=== PATIENT | female | born 1940 | race Caucasian/White ===

== ENCOUNTER 2016-09-26 12:16 | Inpatient (IN) | payer OTHER, MEDICAID ==
[~2016-09-26] VITALS: Ht 152.4 cm; Wt 71.8 kg
[~2016-09-26 12:16] MED LIST: ANT12.5 PO; ASPIR 8181 MG PO; DIOVAN160 MG PO; ECO81 PO; FER300 PO; FERROUS SULFAT325 M2 PO; FLONASE0.05 MG/Ac NS; FLOVENT DI100 MCG/A1; FOL1 PO; FOLIC ACID1 MG PO; HUMI SC; HYDROXYZINE50 M1 PO; LAC PO; LANTUS100 U/ML SC; LEVOTHYROXINE0.1 M2 PO; LIPI10 PO; LOVAZA1 G1 PO; LYRICA150 M1 PO; MAC100 PO; MAC50; MELOXICAM15 M1 PO; METFORMIN HCL1000 MG PO; METHOTREXATE2.5 M2 PO; NORCO1 TA2 PO; OMEPRAZOLE40 M1 PO; PREDNISONE1 MG PO; PULMICORT180 MCG/Ac PO; SYMBICORT1 AE3 INH; THERAGRAN-M1 TA4 PO; TRAMADOL HCL50 MG PO; TRAZODONE100 MG PO; VITAMIN D31000 I2 PO; VITAMIN D32000 I2
[2016-09-26 14:19] LABS: BASOPHIL % 0.3 % (0-2)
[2016-09-26 14:21] LABS: CALCIUM 8.6 mg/dL (8.5-10.1); CHLORIDE SERUM 100 mmol/L (98-107); CREATININE SERUM 1.3 mg/dL (0.6-1.0); GLUCOSE SERUM 142 mg/dL (74-106); POTASSIUM SERUM 3.6 mmol/L (3.5-5.1); SODIUM SERUM 138 mmol/L (136-145)
[2016-09-26 14:30] LABS: ALKALINE PHOSPHATASE 63 U/L (46-116); ALT/SGPT 44 U/L (14-59); AST/SGOT 23 U/L (15-37); BILIRUBIN TOTAL 2.3 mg/dL (0.20-1.00)
[2016-09-26 14:31] LABS: ALBUMIN 3.3 g/dL (3.4-5.0); TOTAL PROTEIN, SERUM 5.9 g/dL (6.4-8.2)
[2016-09-26 14:34] LABS: CK-MB < 0.5 ng/mL (0-3.6); CREATINE KINASE 84 U/L (26-192); PLATELET COUNT 101 x10^3mcL (130-400); RED CELL DISTRIBUTION WIDTH 18.5 % (11.5-14.5)
[2016-09-26] MEDS ORDERED: ATORVASTATIN CA20 M1 PO (14:54)
[2016-09-26] MEDS ORDERED: TRAZODONE50 M1 PO (14:58)
[2016-09-26 15:17] VITALS: BP 113/50
[2016-09-26] MEDS ORDERED: HCTZ/TRIAMTEREN1 CA1 PO (15:24)
[2016-09-26] MEDS ORDERED: [UNRECOGNIZED DRUG - OTHER] PO (15:26)
[2016-09-26] MEDS ORDERED: PREDNISONE1 MG PO (15:26)
[2016-09-26] MEDS ORDERED: NUCYNTA50 MG PO (15:27)
[2016-09-26] MEDS ORDERED: SCOP TOP (15:27)
[2016-09-26] MEDS ORDERED: HYDROXYZINE50 M1 PO (15:28)
[2016-09-26 15:42] LABS: T3 TOTAL 0.85 ng/mL
[2016-09-26 15:56] LABS: CHOLESTEROL/HDL RATIO 1.3; FREE T4 1.85 ng/dL (0.76-1.46); FREE THYROXINE INDEX 4.5 ug/dL (1.4-4.5); T4(THYROXINE) 10.9 ug/dL (4.7-13.3)
[2016-09-26 16:49] VITALS: BP 85/40
[2016-09-26 17:17] VITALS: Ht 152.4 cm; Wt 71.8 kg
[2016-09-26 19:00] VITALS: BP 98/45
[2016-09-26 20:00] VITALS: BP 104/49
[2016-09-26 20:31] LABS: microscopic required? YES; urine erythrocyte TRACE (NEGATIVE)
[2016-09-26 21:24] LABS: BILIRUBIN DIRECT 0.49 mg/dL (0.0-0.2); BILIRUBIN TOTAL 2.3 mg/dL (0.20-1.00)
[2016-09-26 21:50] VITALS: BP 100/50
[2016-09-27 05:42] LABS: BASOPHIL % 0.3 % (0-2)
[2016-09-27 06:02] LABS: CALCIUM 7.8 mg/dL (8.5-10.1); CARBON DIOXIDE 26.2 mmol/L (21-32); CHLORIDE SERUM 110 mmol/L (98-107); CREATININE SERUM 0.9 mg/dL (0.6-1.0); GLUCOSE SERUM 105 mg/dL (74-106); MAGNESIUM 1.7 mg/dL (1.8-2.4); PHOSPHOROUS 2.8 mg/dL (2.5-4.9); POTASSIUM SERUM 3.8 mmol/L (3.5-5.1); SODIUM SERUM 143 mmol/L (136-145)
[2016-09-27 06:17] VITALS: BP 109/51
[2016-09-27 06:51] LABS: PLATELET COUNT 84 x10^3mcL (130-400); RED CELL DISTRIBUTION WIDTH 17.9 % (11.5-14.5)
[2016-09-27 08:47] VITALS: BP 131/66
[2016-09-27 18:02] VITALS: BP 108/52
[2016-09-27 21:35] VITALS: BP 123/59
[2016-09-28 06:20] LABS: BASOPHIL % 0.6 % (0-2)
[2016-09-28 06:21] VITALS: BP 115/61
[2016-09-28 06:40] LABS: PLATELET COUNT 102 x10^3mcL (130-400); RED CELL DISTRIBUTION WIDTH 18.5 % (11.5-14.5)
[2016-09-28 06:41] LABS: CHLORIDE SERUM 110 mmol/L (98-107); CREATININE SERUM 0.8 mg/dL (0.6-1.0); GLUCOSE SERUM 100 mg/dL (74-106); PHOSPHOROUS 2.9 mg/dL (2.5-4.9); POTASSIUM SERUM 3.6 mmol/L (3.5-5.1); SODIUM SERUM 143 mmol/L (136-145)
[2016-09-28 08:57] VITALS: BP 120/56
[2016-09-28 13:58] VITALS: BP 138/71
[2016-09-28 18:17] VITALS: BP 128/89
[2016-09-28 21:35] VITALS: BP 125/59
[2016-09-29 05:33] VITALS: BP 147/72
[2016-09-29 06:11] LABS: BASOPHIL % 0.5 % (0-2)
[2016-09-29 06:40] LABS: PLATELET COUNT 108 x10^3mcL (130-400); RED CELL DISTRIBUTION WIDTH 18.8 % (11.5-14.5)
[2016-09-29 06:52] LABS: CALCIUM 8.1 mg/dL (8.5-10.1); CARBON DIOXIDE 26.3 mmol/L (21-32); CHLORIDE SERUM 110 mmol/L (98-107); CREATININE SERUM 0.7 mg/dL (0.6-1.0); GLUCOSE SERUM 76 mg/dL (74-106); MAGNESIUM 1.8 mg/dL (1.8-2.4); PHOSPHOROUS 3.2 mg/dL (2.5-4.9); POTASSIUM SERUM 3.6 mmol/L (3.5-5.1); SODIUM SERUM 144 mmol/L (136-145)
[2016-09-29 07:40] VITALS: BP 147/72
[2016-09-29] MEDS ORDERED: LEVAQUIN750 MG PO (10:39)
[2016-09-29] MEDS ORDERED: LAC PO (10:40)
[2016-09-29] MEDS ORDERED: CLEOCIN HCL300 MG PO (10:40)
[2016-09-29 14:00] VITALS: BP 129/79
[2016-09-29] MEDS ORDERED: FLONS (15:06)
[2016-09-29] MEDS ORDERED: VITAMIN-D1000 IU (15:07)
== END 2016-09-29 16:37 | disposition home or self-care (01) | DRG 871 ==
LOC: ED 12:16 → DU 14:42
PROVIDERS: Emergency Medicine; Family Medicine; ADMIT Family Medicine
DX: A41.9 Sepsis, unspecified organism (principal); J69.0 Pneumonitis due to inhalation of food and vomit; N17.0 Acute kidney failure with tubular necrosis; J96.01 Acute respiratory failure with hypoxia; E44.0 Moderate protein-calorie malnutrition; D68.69 Other thrombophilia; E11.65 Type 2 diabetes mellitus with hyperglycemia; R65.20 Severe sepsis without septic shock; E86.0 Dehydration; E83.42 Hypomagnesemia; I10 Essential (primary) hypertension; K21.9 Gastro-esophageal reflux disease without esophagitis; E03.9 Hypothyroidism, unspecified; M06.9 Rheumatoid arthritis, unspecified; E78.5 Hyperlipidemia, unspecified; D69.6 Thrombocytopenia, unspecified; D64.9 Anemia, unspecified; E87.8 Other disorders of electrolyte and fluid balance, not elsewhere classified; Z79.82 Long term (current) use of aspirin; Z68.31 Body mass index [BMI] 31.0-31.9, adult; M71.21 Synovial cyst of popliteal space [Baker], right knee
CPT/HCPCS: 36600; 82962; 83880; 84439; 97110-GP; 97116-GP; 97530-GP; J1815; J1956; J3475; J3490; J7030; J7512; J7613; J7620; J7626; Q0092

== ENCOUNTER → 2016-09-30 | Outpatient (CLI) | payer OTHER, MEDICAID ==
[~2016-09-30] MED LIST changes: +ATORVASTATIN CA20 M1 PO; +CLEOCIN HCL300 MG PO; +FLONS; +HCTZ/TRIAMTEREN1 CA1 PO; +LEVAQUIN750 MG PO; +NUCYNTA50 MG PO; +SCOP TOP; +TRAZODONE50 M1 PO; +VITAMIN-D1000 IU; +[UNRECOGNIZED DRUG - OTHER] PO
== END | disposition home or self-care (01) ==
LOC: MA 10:19
PROC: BH02ZZZ Plain Radiography of Bilateral Breasts (ICD-10-PCS; principal; 2016-09-30)
DX: Z12.39 Encounter for other screening for malignant neoplasm of breast (principal)
CPT/HCPCS: G0202

== ENCOUNTER 2016-11-02 10:27 | Inpatient (IN) | payer OTHER, MEDICAID ==
[~2016-11-02] VITALS: Ht 152.4 cm; Wt 65.4 kg
--- NOTE | 2016-11-02 11:04 | NUR ---
PT IS AAOX4, RESP EVEN AND UNLABORED, RA. NO SIGN OF DISTRESS. PT TO WAIT IN LOBBY DUE TO NO BED AVAILIBLE AT THIS TIME
--- NOTE | 2016-11-02 11:55 | NUR ---
DR. RATLIFF PERFORMED MSE, PT IN ED WITH C/O COUGH SINCE TUESDAY WITH EXERTIONAL SOB, PT IS AAO4, NO ACUTE DISTRESS, BREATHING IS EVEN AND UNLABORED, DENIES CHEST PAIN, C/O BILATERAL LEG PAIN
[2016-11-02 12:20] LABS: BASOPHIL % 0.7 % (0-2)
[2016-11-02 12:22] LABS: PLATELET COUNT 101 x10^3mcL (130-400); RED CELL DISTRIBUTION WIDTH 17.5 % (11.5-14.5)
[2016-11-02 12:31] LABS: CALCIUM 8.8 mg/dL (8.5-10.1); CARBON DIOXIDE 27.5 mmol/L (21-32); CHLORIDE SERUM 104 mmol/L (98-107); CREATININE SERUM 1.3 mg/dL (0.6-1.0); GLUCOSE SERUM 91 mg/dL (74-106); POTASSIUM SERUM 4.2 mmol/L (3.5-5.1); SODIUM SERUM 139 mmol/L (136-145)
[2016-11-02 12:35] LABS: ALKALINE PHOSPHATASE 99 U/L (46-116); ALT/SGPT 34 U/L (14-59); AST/SGOT 21 U/L (15-37); BILIRUBIN TOTAL 1.1 mg/dL (0.20-1.00); TOTAL PROTEIN, SERUM 6.8 g/dL (6.4-8.2)
[2016-11-02 12:36] LABS: ALBUMIN 3.2 g/dL (3.4-5.0)
[2016-11-02 13:03] LABS: microscopic required? YES; urine erythrocyte TRACE (NEGATIVE)
[2016-11-02 13:38] VITALS: BP 102/57
--- NOTE | 2016-11-02 13:51 | NUR ---
CALLED [facility] FOR REPORT, WILL CALL BACK
--- NOTE | 2016-11-02 14:09 | NUR ---
REPORT TO [facility] TAM, PER [facility] BED BEING CLEANED CAN MOVE PT IN 10-15 MINUTES
[2016-11-02 14:25] LABS: T3 TOTAL 0.89 ng/mL
[2016-11-02 14:27] LABS: FREE T4 1.24 ng/dL (0.76-1.46); FREE THYROXINE INDEX 3.9 ug/dL (1.4-4.5); T4(THYROXINE) 10.5 ug/dL (4.7-13.3)
[2016-11-02 14:31] LABS: CHOLESTEROL/HDL RATIO 1.4
[2016-11-02 14:32] LABS: PHOSPHOROUS 2.8 mg/dL (2.5-4.9)
[2016-11-02 15:16] VITALS: BP 80/36
--- NOTE | 2016-11-02 15:45 | NUR ---
ARRIVED FROM ED AT 1435. AAO TIMES 4. TELE # 10 ST 104, BP 80/36 (DR CORDERO NOTIFIED) LUNGS CTA. O2 SAT ON RA 94%. BS'S ACTIVE TIMES 4. PERIPHERAL PULSES PALPABLE. NO EDEMA. C/O PERIPHERAL LEG PAIN, STATES SHE HAS NEUROPATHY. BLOOD SUGAR WAS 146 AT 1500 (SHE SAYS SHE TOOK HER MEDICATIONS BUT DIDNT EAT AND SHE HAS HISTORY OF DM, AND HER DTR GIVES HER HER PILLS AND SHE DOESNT KNOW WHICH ONES SHE TOOK). BOLUS WAS STARTED ORDERED, SEE MAR. WAITING FOR BOLUS TO FINISH FOR VS'S TO BE DONE.
[2016-11-02 16:45] VITALS: BP 90/42
--- NOTE | 2016-11-02 16:58 | NUR ---
BOLUS STARTED AT 1515 AT 1000 ML PER HOUR. PT KEPT BENDING HER ARM AND THE IV WAS ALARMING AT 1615 I APPLIED AN ARM BOARD TO KEEP HER ARM STRAIGHT. THE BOLUS ENDED AT 1545. VS'S TEMP 97.7, HR 101, RESP 24, BP 90/42 AFTER THE BOLUS COMPLETED.
[2016-11-02 17:15] VITALS: BP 89/49
--- NOTE | 2016-11-02 17:28 | NUR ---
DR PATTERSON WAS NOTIFIED OF BP OF 89/49 AT 1715 AND AT 1645 90/42 POST BOLUS INFUSION OF 1000 ML NS. NEW ORDER TO BOLUS A 2ND LITER OF NS.
--- NOTE | 2016-11-02 17:42 | NUR ---
2ND BOLUS STARTED AT 1732, WITH AN ARM BOARD SHE STILL KEEPS BENDING HER ARM, REMINDERS ARE GIVEN TO HER BUT SHE FORGETS.
--- NOTE | 2016-11-02 18:15 | NUR ---
AAO TIMES 4. TELE # [address] NO C/O PAIN. BOLUS OF 1000 ML NS INFUSING ORDERED. ARM BOARD TO TOPHER RE APPLIED AND SHE WAS REMINDED TO KEEP HER ARM STRAIGHT, SHE IS FORGETFUL REGARDING THIS. SHE ATE 90% OF HER DINNER, TOLERATED WELL.
--- NOTE | 2016-11-02 20:00 | NUR ---
AWAKE AND VERBALLY RESPONSIVE. ABLE TO MAKE NEEDS KNOWN. SKIN WARM AND DRY TOT OUCH. RESPIRATION EVEN AND UNLABORED. IVF NS BOLUS ONGOING ORDERED. DENIES ANY PAIN/DISCOMFORT. WILL CONTINUE TO MONITOR.
[2016-11-02 21:30] VITALS: BP 102/53; BP 148/50
--- NOTE | 2016-11-02 21:30 | NUR ---
IVF NS BOLUS 2ND LITER COMPLETED, IVF MAINTAINED AT 50CC/HR ORDERED VIA PERIPHERAL LINE AT THE LAC . IV SITE CLEAR AND INTACT. WILL RECHECK VITAL SIGNS AFTER IHR COMPLETION OF 2ND LITER OF NS.
[2016-11-02 22:30] VITALS: BP 106/53; BP 106/54
--- NOTE | 2016-11-02 22:30 | NUR ---
VITAL SIGNS TAKEN T=97.6, HR=86/MIN, R=20, YR=058/53, NO NEED TO REPEAT LACTIC ACID PER DR OLVERA, LACTIC ACID-1.7. WILL CONTINUE TO MONITOR.
--- NOTE | 2016-11-03 00:23 | NUR ---
EYES CLSOED, NO FACIAL GRIAMCING NOTED. RESPIRATION EVEN AND UNLABORED. NO S/S OF PAIN/DISCOMFORT AT THIS TIME.
[2016-11-03 05:03] LABS: BASOPHIL % 0.4 % (0-2)
[2016-11-03 05:05] LABS: PLATELET COUNT 80 x10^3mcL (130-400)
[2016-11-03 05:10] LABS: CARBON DIOXIDE 23.4 mmol/L (21-32); CHLORIDE SERUM 109 mmol/L (98-107); CREATININE SERUM 1.1 mg/dL (0.6-1.0); GLUCOSE SERUM 134 mg/dL (74-106); MAGNESIUM 1.7 mg/dL (1.8-2.4); PHOSPHOROUS 3.2 mg/dL (2.5-4.9); POTASSIUM SERUM 4.2 mmol/L (3.5-5.1); SODIUM SERUM 142 mmol/L (136-145)
[2016-11-03 05:47] VITALS: BP 101/68
--- NOTE | 2016-11-03 06:49 | NUR ---
AMBULATED TO BATHROOM FOR PERSONAL NEEDS. KEPT CLEAN AND DRY. TOLERATED FLUIDS ORALLY. NO S/S OF ASPIRATION.
--- NOTE | 2016-11-03 08:37 | NUR ---
PT WAS ENDORSE TO ME, A/O , IV LAC AT 100 NS, NO REDNESS OR SWELLING NOTED AT IV SITE. PT DENIES ANY CHEST PAIN OR ACUTE DISCOMFORT. CALL LIGHT IN REACH, WILL CONTINUE PLAN OF CARE.
--- NOTE | 2016-11-03 08:40 | NUR ---
DR PEREZ AND TEAM MADE ROUNDS, WILL CONTINUE PLAN OF CARE.
--- NOTE | 2016-11-03 09:00 | NUR ---
GAVE PT AM MEDS, TOLERATED WELL. EDUCATED PT ON SCD AND INCENTIVE SPIROMETER. CALL LIGHT IN REACH, WILL CONTINUE PLAN OF CARE.
[2016-11-03 09:02] VITALS: BP 132/60
[2016-11-03 12:27] VITALS: BP 114/60
--- NOTE | 2016-11-03 14:02 | NUR ---
MEDICATED PT WITH ROBITUSSIN DUE TO COUGH.
--- NOTE | 2016-11-03 14:30 | NUR ---
NOTIFIED DR CORDERO REGRADING PT CONSISTENT COUGH.
--- NOTE | 2016-11-03 15:47 | NUR ---
MEDICATED PT WITH 1 ANDREAS/CEPACOL, WILL CONTINUE PLAN OF CARE.
[2016-11-03 16:06] VITALS: BP 115/62
--- NOTE | 2016-11-03 17:43 | NUR ---
GAVE PT PM MED, TOLERATED WELL. IS SITTING UP IN BED HAVING DINNER WITH AT HER SIDE. CALL LIGHT IN REACH, WILL CONINUE PLAN OF CARE.
--- NOTE | 2016-11-03 18:38 | NUR ---
PT C/O COUGH, MEDICATED WITH CEPACOL.
--- NOTE | 2016-11-03 18:56 | NUR ---
NURSING CO-SIGN THE DOCUMENTATION ENTERED BY THE RN JUAN ALBERTO HAS BEEN REVIEWED. REVIEWED/CO-SIGNED BY: Nancy Spivey DOCUMENTATION DONE BY:JEY GONZALES
--- NOTE | 2016-11-03 19:06 | NUR ---
PT IS WATCHING TV WITH AT BEDSIDE, STATED COUGH IS ALOT BETTER. CALL LIGHT IN REACH, BED AT LOW POSITION, WILL ENDORSE PT TO INCOMING NURSE.
--- NOTE | 2016-11-03 20:02 | NUR ---
PT CURRENTLY RESTING IN BED, NO ACUTE DISTRESS. A/O X4. TELE #10 SHOWING SINUS TACHYCARDIA, DENIES CHEST PAIN. PULSES PALPABLE IN ALL EXTREMITIES, NO EDEMA NOTED. LUNG SOUNDS CTA BILATERALLY. NON-PRODUCTIVE COUGH NOTED. BOWEL SOUNDS ACTIVE, LAST BM 11/03/16. VOIDING WELL. MILD GENERALIZED WEAKNESS NOTED, AMBULATORY. SKIN INTACT. DENIES PAIN AT THIS TIME. IV PATENT AND INTACT. BED IN LOWEST POSITION, SIDE RAILS UP X2, SCDS IN PLACE, CALL LIGHT WITHIN REACH. WILL CONTINUE TO MONITOR.
[2016-11-03 22:01] VITALS: BP 119/64
[2016-11-04 05:58] VITALS: BP 122/60
[2016-11-04 06:20] LABS: CALCIUM 8.6 mg/dL (8.5-10.1); CARBON DIOXIDE 26.2 mmol/L (21-32); CHLORIDE SERUM 112 mmol/L (98-107); CREATININE SERUM 0.7 mg/dL (0.6-1.0); GLUCOSE SERUM 116 mg/dL (74-106); MAGNESIUM 1.8 mg/dL (1.8-2.4); PHOSPHOROUS 2.9 mg/dL (2.5-4.9); POTASSIUM SERUM 3.9 mmol/L (3.5-5.1); SODIUM SERUM 146 mmol/L (136-145)
[2016-11-04 07:19] LABS: BASOPHIL % 1.7 % (0-2)
[2016-11-04 07:24] LABS: PLATELET COUNT 103 x10^3mcL (130-400); RED CELL DISTRIBUTION WIDTH 17.2 % (11.5-14.5)
[2016-11-04 10:05] VITALS: BP 113/52
[2016-11-04 15:10] VITALS: BP 131/71
[2016-11-04 17:20] VITALS: BP 132/71
--- NOTE | 2016-11-04 19:17 | NUR ---
PT RESTING COMFORTABLY AT THIS TIME AFTER DINNER,IN NO DISTRESS,DENIES PAIN. BEDSIDE ENDORSEMENT DONE W/ NOC NURSE ABIEL.CALL LIGHT PROVIDED AT HAND AND REINFORCE ITS USE.
--- NOTE | 2016-11-04 20:11 | NUR ---
[facility] PT AOX4. TELE #10, SR WITH BB, HR 114. DENIES CP/ PRESSURE. PULSES GOOD, NO EDEMA NOTED. LUNG SOUNDS CLEAR, ON RA. DENIES SOB/ DIFFICULTY BREATHING. BOWEL SOUNDS ACTIVE. PT AMBULATORY. SKIN INTACT. IV IN LAC, INTACT AND PATENT. BED IN LOWEST POSITION. CALL LIGHT WITHIN REACH. WILL CONTINUE TO MONITOR.
[2016-11-04 20:53] VITALS: BP 101/57
--- NOTE | 2016-11-04 23:41 | NUR ---
PATIENT CANNOT TOLERATE BIPAP, HAD PATIENT TIRED BIPAP ON AT 2145.
--- NOTE | 2016-11-05 02:35 | NUR ---
PT RESTING IN BED. RR EVEN AND UNLABORED. NO ACUTE DISTRESS NOTED. BED IN LOWEST POSITION. CALL LIGHT WITHIN REACH. WILL CONTINUE TO MONITOR.
[2016-11-05 05:19] VITALS: BP 123/61
[2016-11-05 05:48] LABS: BASOPHIL % 0.1 % (0-2)
[2016-11-05 06:17] LABS: CALCIUM 8.6 mg/dL (8.5-10.1); CHLORIDE SERUM 106 mmol/L (98-107); CREATININE SERUM 0.8 mg/dL (0.6-1.0); GLUCOSE SERUM 241 mg/dL (74-106); POTASSIUM SERUM 3.9 mmol/L (3.5-5.1); SODIUM SERUM 140 mmol/L (136-145)
[2016-11-05 06:43] LABS: PLATELET COUNT 109 x10^3mcL (130-400); RED CELL DISTRIBUTION WIDTH 17.4 % (11.5-14.5)
[2016-11-05 09:09] VITALS: BP 114/68
--- NOTE | 2016-11-05 09:32 | NUR ---
PT ON BED, AWAKE, ALERT, AND ORIENTED. HAS NO COMPLAINT OF PAIN, SOB, OR DIZZINESS. PT IS BERMUDIAN SPEAKING MOSTLY. CLEAR [place] LUNG FIELD, SYMMETRICAL CHEST EXPANSION AND UNLABORED. ACTIVE BOWEL SOUNDS NOTED. NON DISTENDED ABDOMEN. NO DISTRESS NOTED. DR. CORDERO WAS MADE AWARE OF PT'S DAUGHTER REQUESTING TO TALK TO HIM OVER THE PHONE. FAMILY AT BEDSIDE. SIDE RAILS UP, CALL LIGHT WITHIN REACH, WILL CONTINUE TO MONITOR
[2016-11-05] MEDS ORDERED: LEVOTHYROXINE0.05 M2 PO (12:06)
[2016-11-05] MEDS ORDERED: PREDNISONE10 MG PO (12:08)
[2016-11-05 13:42] VITALS: BP 132/67
--- NOTE | 2016-11-05 13:55 | NUR ---
MATERIAL WAS MADE AWARE OF PT IN NEED OF HEEL RAISER BOOT
[2016-11-05] MEDS ORDERED: XOPENEX HF0.045 MG/1 INH (14:20)
[2016-11-05 14:40] VITALS: BP 132/67
[2016-11-05 14:45] VITALS: BP 132/67
[2016-11-05] MEDS ORDERED: PULMICORT0.5 MG/2 M NEB (21:36)
== END 2016-11-05 15:57 | disposition home or self-care (01) | DRG 205 ==
LOC: ED 10:27 → DU 12:55
PROVIDERS: Emergency Medicine; Family Medicine; ADMIT Family Medicine
DX: M94.0 Chondrocostal junction syndrome [Tietze] (principal); N17.0 Acute kidney failure with tubular necrosis; D68.69 Other thrombophilia; J70.3 Chronic drug-induced interstitial lung disorders; E11.65 Type 2 diabetes mellitus with hyperglycemia; K21.9 Gastro-esophageal reflux disease without esophagitis; E83.42 Hypomagnesemia; D69.6 Thrombocytopenia, unspecified; I10 Essential (primary) hypertension; M06.9 Rheumatoid arthritis, unspecified; E78.5 Hyperlipidemia, unspecified; D53.9 Nutritional anemia, unspecified; Z79.82 Long term (current) use of aspirin; Z79.4 Long term (current) use of insulin; Z79.84 Long term (current) use of oral hypoglycemic drugs; E05.80 Other thyrotoxicosis without thyrotoxic crisis or storm; T45.1X5A Adverse effect of antineoplastic and immunosuppressive drugs, initial encounter; Y92.018 Other place in single-family (private) house as the place of occurrence of the external cause
CPT/HCPCS: 36600; 82962; 83880; 84439; 94150; J1885; J1956; J2920; J7030; J7613; J7620; J7626; J7644; Q0092

== ENCOUNTER → 2016-12-02 | Outpatient (CLI) | payer OTHER, MEDICAID ==
[~2016-12-02] MED LIST changes: +LEVOTHYROXINE0.05 M2 PO; +PREDNISONE10 MG PO; +PULMICORT0.5 MG/2 M NEB; +XOPENEX HF0.045 MG/1 INH
== END | disposition home or self-care (01) ==
LOC: US 11:30
PROC: BH41ZZZ Ultrasonography of Left Breast (ICD-10-PCS; principal; 2016-12-02)
DX: N63 Unspecified lump in breast (principal)
CPT/HCPCS: 76641

== ENCOUNTER → 2017-05-31 | Outpatient (CLI) | payer OTHER, MEDICAID | END | disposition home or self-care (01) | LOC: MA 12:38 | PROC: BH02ZZZ Plain Radiography of Bilateral Breasts (ICD-10-PCS; principal; 2017-05-31) | DX: R92.8 Other abnormal and inconclusive findings on diagnostic imaging of breast (principal) | CPT/HCPCS: G0204 ==

== ENCOUNTER → 2017-10-25 | Outpatient (CLI) | payer OTHER, MEDICAID | END | disposition home or self-care (01) | LOC: US 13:46 | PROC: B345ZZZ Ultrasonography of Bilateral Common Carotid Arteries (ICD-10-PCS; principal; 2017-10-25) | PROC: B348ZZZ Ultrasonography of Bilateral Internal Carotid Arteries (ICD-10-PCS; 2017-10-25) | DX: R09.89 Other specified symptoms and signs involving the circulatory and respiratory systems (principal) ==

== ENCOUNTER 2018-08-27 15:00 | Inpatient (IN) | payer OTHER, MEDICAID ==
[~2018-08-27] VITALS: Ht 127 cm; Wt 70.0 kg
[~2018-08-27 15:00] MED LIST changes: -VITAMIN-D1000 IU; +VITAMIN-D1000 IU PO
[2018-08-27 15:09] VITALS: Ht 127 cm; Wt 70.0 kg
[2018-08-27 16:03] LABS: BASOPHIL % 0.3 % (0-2); PLATELET COUNT 191 x10^3mcL (130-400); RED CELL DISTRIBUTION WIDTH 13.8 % (11.5-14.5)
[2018-08-27 16:09] LABS: CALCIUM 8.8 mg/dL (8.5-10.1); CARBON DIOXIDE 27.1 mmol/L (21-32); CHLORIDE SERUM 98 mmol/L (98-107); CREATININE SERUM 0.9 mg/dL (0.6-1.0); GLUCOSE SERUM 252 mg/dL (74-106); POTASSIUM SERUM 3.4 mmol/L (3.5-5.1); SODIUM SERUM 134 mmol/L (136-145)
[2018-08-27 16:14] LABS: ALKALINE PHOSPHATASE 141 U/L (46-116); ALT/SGPT 36 U/L (14-59); AST/SGOT 37 U/L (15-37); BILIRUBIN TOTAL 0.82 mg/dL (0.20-1.00); TOTAL PROTEIN, SERUM 6.5 g/dL (6.4-8.2)
[2018-08-27 16:21] LABS: ALBUMIN 2.4 g/dL (3.4-5.0)
[2018-08-27 17:08] LABS: UA SPECIFIC GRAVITY <=1.005 (1.005-1.035); microscopic required? YES; urine erythrocyte NEGATIVE (NEGATIVE)
[2018-08-27] MEDS ORDERED: ARAVA20 MG PO (17:09)
[2018-08-27] MEDS ORDERED: LYRICA150 M1 (17:10)
[2018-08-27] MEDS ORDERED: AMITRIPTYLINE H50 MG PO (17:10)
[2018-08-27] MEDS ORDERED: NOR5 PO (17:10)
[2018-08-27] MEDS ORDERED: MIRAPEX0.25 MG PO (17:10)
[2018-08-27] MEDS ORDERED: SUCRALFATE1 GM PO (17:11)
[2018-08-27] MEDS ORDERED: HYDROXYZINE10 M1 PO (17:11)
[2018-08-27] MEDS ORDERED: BACLOFEN10 MG PO (17:11)
[2018-08-27] MEDS ORDERED: VOLTAREN-XR100 MG PO (17:12)
[2018-08-27 17:18] VITALS: BP 154/72
[2018-08-27 18:15] VITALS: BP 134/70
[2018-08-27 21:34] VITALS: BP 121/63
[2018-08-28] VITALS (7 sets, daily range): BP systolic 118–137; BP diastolic 62–75
[2018-08-28 07:32] LABS: CALCIUM 8.1 mg/dL (8.5-10.1); CARBON DIOXIDE 26.7 mmol/L (21-32); CHLORIDE SERUM 109 mmol/L (98-107); CREATININE SERUM 0.7 mg/dL (0.6-1.0); GLUCOSE SERUM 121 mg/dL (74-106); POTASSIUM SERUM 3.9 mmol/L (3.5-5.1); SODIUM SERUM 143 mmol/L (136-145)
[2018-08-28 08:13] LABS: BASOPHIL % 0.5 % (0-2); PLATELET COUNT 166 x10^3mcL (130-400); RED CELL DISTRIBUTION WIDTH 13.8 % (11.5-14.5)
[2018-08-29 05:08] VITALS: BP 133/61
[2018-08-29 06:23] LABS: BASOPHIL % 0.4 % (0-2); PLATELET COUNT 183 x10^3mcL (130-400); RED CELL DISTRIBUTION WIDTH 13.8 % (11.5-14.5)
[2018-08-29 06:35] LABS: CALCIUM 8.4 mg/dL (8.5-10.1); CARBON DIOXIDE 26.9 mmol/L (21-32); CHLORIDE SERUM 106 mmol/L (98-107); CREATININE SERUM 0.7 mg/dL (0.6-1.0); GLUCOSE SERUM 115 mg/dL (74-106); POTASSIUM SERUM 3.7 mmol/L (3.5-5.1); SODIUM SERUM 141 mmol/L (136-145)
[2018-08-29 08:01] VITALS: BP 132/76
[2018-08-29 12:11] VITALS: BP 141/63
[2018-08-29 14:07] VITALS: BP 141/63
[2018-08-29] MEDS ORDERED: AUG500 PO (14:34)
== END 2018-08-29 15:54 | disposition home or self-care (01) | DRG 189 ==
LOC: ED 15:00 → DU 17:02
PROVIDERS: Emergency Medicine; ADMIT Internal Medicine
DX: J96.01 Acute respiratory failure with hypoxia (principal); J45.901 Unspecified asthma with (acute) exacerbation; E87.2 Acidosis; J20.9 Acute bronchitis, unspecified; E11.65 Type 2 diabetes mellitus with hyperglycemia; I10 Essential (primary) hypertension; D64.9 Anemia, unspecified; M19.90 Unspecified osteoarthritis, unspecified site; G89.4 Chronic pain syndrome; Z79.82 Long term (current) use of aspirin; Z79.4 Long term (current) use of insulin; Z79.84 Long term (current) use of oral hypoglycemic drugs; Z68.31 Body mass index [BMI] 31.0-31.9, adult
CPT/HCPCS: 82962; 87804; J0456; J0696; J1644; J2543; J7030; J7512; J7620; J7626; Q0092

== ENCOUNTER → 2019-06-11 | Outpatient (CLI) | payer OTHER, MEDICAID ==
[~2019-06-11] MED LIST changes: +AMITRIPTYLINE H50 MG PO; +ARAVA20 MG PO; +AUG500 PO; +BACLOFEN10 MG PO; +HYDROXYZINE10 M1 PO; +LYRICA150 M1; +MIRAPEX0.25 MG PO; +NOR5 PO; +SUCRALFATE1 GM PO; +VOLTAREN-XR100 MG PO
== END | disposition home or self-care (01) ==
LOC: MA 14:11
PROC: BH02ZZZ Plain Radiography of Bilateral Breasts (ICD-10-PCS; principal; 2019-06-11)
DX: Z12.31 Encounter for screening mammogram for malignant neoplasm of breast (principal)
CPT/HCPCS: 77067